=== PATIENT | male | born 1955 | race Caucasian/White ===

== ENCOUNTER 2016-04-12 11:24 | Inpatient (IN) | payer OTHER ==
[2016-04-12 12:10] VITALS: BMI 26.3
--- NOTE | 2016-04-12 14:01 | HP ---
Admission ROS [facility] Chief Complaint: I need to go to rehab for further treatment. I was at [facility] for alcohol detox. Allergies/Adverse Reactions: Allergies Allergy/AdvReac Type Severity Reaction Status Date / Time No Known Allergies Allergy Verified 04/12/16 13:49 History of Present Illness: Pt is a 60yr old male with a history of alcohol dependence seeking rehab for treatment after detox. Exam Limitations: No Limitations - Ebola screening Have you traveled outside of the country in the last 21 days: No Have you had contact with anyone from an Ebola affected area: No Have you been sick,other than usual withdrawal symptoms: No Do you have a fever: No - Review of Systems Constitutional: Diaphoresis EENT: reports: No Symptoms Reported Respiratory: reports: Cough Cardiac: reports: No Symptoms Reported GI: reports: Diarrhea, Poor Appetite, Poor Fluid Intake : reports: No Symptoms Reported Musculoskeletal: reports: Muscle Pain, Other (left knee pain d/t fall a week ago. went to [facility] for x-ray and cleared no fx. also same injury left finger closed fx to left hand) Neuro: reports: Tingling, Tremors Endocrine: reports: Excessive Sweating, Flushing, Intolerance to Cold, Intolerance to Heat Hematology: reports: No Symptoms Reported Psychiatric: reports: Judgement Intact, Mood/Affect Appropiate, Orientated x3, Agitated, Anxious Other Systems: Reviewed and Negative Patient History - Patient Medical History Hx Anemia: No Hx Asthma: No Hx Chronic Obstructive Pulmonary Disease (COPD): No Hx Cancer: No Hx Cardiac Disorders: No Hx Congestive Heart Failure: No Hx Hypertension: Yes (NONCOMPLIANT WITH MED..ON HYDROCHLOROTHIAZIDE.) Hx Hypercholesterolemia: No Hx Pacemaker: No HX Cerebrovascular Accident: No Hx Seizures: No Hx Dementia: No Hx Diabetes: No Hx Gastrointestinal Disorders: No Hx Liver Disease: No Hx Genitourinary Disorders: No Hx Sexually Transmitted Disorders: No Hx Renal Disease (ESRD): No Hx Thyroid Disease: No Hx Human Immunodeficiency Virus (HIV): No (NEGATIVE HX) Hx Hepatitis C: No (NEGATIVE HX) Hx Depression: No Hx Suicide Attempt: No (DENIES) Hx Bipolar Disorder: No Hx Schizophrenia: No - Patient Surgical History Past Surgical History: Yes Hx Neurologic Surgery: No Hx Cataract Extraction: No Hx Cardiac Surgery: No Hx Lung Surgery: No Hx Breast Surgery: No Hx Breast Biopsy: No Hx Abdominal Surgery: No Hx Appendectomy: No Hx Cholecystectomy: No Hx Genitourinary Surgery: No Hx Section: No Hx Orthopedic Surgery: Yes (surgery of left ankle in 2008 WITH PINS) Anesthesia Reaction: No - PPD History Previous Implant?: No Documented Results: Negative w/proof Date: 02/04/16 Results: 0 mm PPD to be Administered?: No - Reproductive History Patient is a Female of Child Bearing Age (11 -55 yrs old): No - Smoking Cessation Smoking history: Current every day smoker Have you smoked in the past 12 months: Yes Aproximately how many cigarettes per day: 20 If you are a former smoker, when did you quit?: 10Y AGO Cigars Per Day: 0 Hx Chewing Tobacco Use: No Initiated information on smoking cessation: Yes 'Breaking Loose' booklet given: 04/12/16 - Substance & Tx. History Hx Alcohol Use: Yes Hx Substance Use: Yes Substance Use Type: Alcohol - Substances Abused Alcohol Route: Oral Frequency: Daily Amount used: a fifth a day of chau Age of first use: 16 Date of Last Use: 04/08/16 Family Disease History - Family Disease History Family Disease History: Heart Disease: Mother (), CA: Father (prostate CA ) Admission Physical Exam S - Vital Signs Vital Signs: Vital Signs - 24 hr 04/12/16 12:08 Temperature 98.2 F Pulse Rate 91 H Respiratory 20 Rate Blood Pressure 158/99 - Physical General Appearance: Yes: Appropriately Dressed, Moderate Distress, Tremorous, Irritable, Sweating, Anxious HEENTM: Yes: Hearing grossly Normal, Muffled/Hoarse Voice Respiratory: Yes: Lungs Clear, Normal Breath Sounds, No Respiratory Distress Neck: Yes: No masses,lesions,Nodules Breast: Yes: Within Normal Limits Cardiology: Yes: Regular Rhythm, Regular Rate, S1, S2 Abdominal: Yes: Normal Bowel Sounds, Non Tender, Soft Genitourinary: Yes: Within Normal Limits Back: Yes: Normal Inspection Musculoskeletal: Yes: Joint Stiffness (left knee), Muscle Pain Extremities: Yes: Normal Capillary Refill, Non-Tender, Tremors Neurological: Yes: Fully Oriented, Alert, Normal Response Integumentary: Yes: Normal Color, Diaphoresis Lymphatic: Yes: Within Normal Limits - Diagnostic (1) HTN (hypertension) Current Visit: Yes Status: Chronic Qualifiers: Hypertension type: essential hypertension Qualified Code(s): I10 - Essential (primary) hypertension (2) Injury of left little finger Current Visit: Yes Status: Acute Qualifiers: Encounter type: initial encounter Qualified Code(s): S69.92XA - Unspecified injury of left wrist, hand and finger(s), initial encounter Comment: went to [facility] had x-ray; closed fx. given motrin for pain (3) Knee pain, acute Current Visit: Yes Status: Acute Qualifiers: Laterality: left Qualified Code(s): M25.562 - Pain in left knee Comment: went to [facility] x-ray done, no fx to knee, only brusing noted (4) Nicotine dependence Current Visit: Yes Status: Chronic Qualifiers: Nicotine product type: cigarettes Substance use status: uncomplicated Qualified Code(s): F17.210 - Nicotine dependence, cigarettes, uncomplicated Cleared for Admission [facility] - Detox or Rehab [facility] Level of Care: Medically Managed Claeared for Rehab Admission: Yes [facility] Breath Alcohol Content Breath Alcohol Content: 0 Urine Drug Screen - Results Drug Screen Negative: No Urine Drug Screen Results: BZO-Benzodiazepines
[2016-04-12] MEDS ORDERED: hydrOXYzine PAMOATE 50 MG CAPSULE (FP) PO PRN (14:13)
[2016-04-12] MEDS ORDERED: ACETAMINOPHEN 325 MG TABLET (FP) PO PRN (14:13)
[2016-04-12] MEDS ORDERED: MAGNESIUM CITRATE 300 ML BOTTLE PO PRN (14:13)
[2016-04-12] MEDS ORDERED: MAG HYDROX/AL HYDROX/SIMETH 30 ML UNIT-DOSE CUP PO PRN (14:13)
[2016-04-12] MEDS ORDERED: P-EPHED 60MG/TRIPROLIDI 2.5MG TABLET PO PRN (14:13)
[2016-04-12] MEDS ORDERED: NICOTINE POLACRILEX 4 MG GUM BC PRN (14:13)
[2016-04-12] MEDS ORDERED: MAGNESIUM HYDROX 2400MG/30ML ORAL SUSPENSION 30 ML CUP PO PRN (14:13)
[2016-04-12] MEDS ORDERED: IBUPROFEN 400 MG TABLET (FP) PO PRN (14:13)
[2016-04-12] MEDS ORDERED: LOPERAMIDE HCL 2 MG CAPSULE PO PRN (14:13)
[2016-04-12] MEDS ORDERED: MENTHOL/PHENOL 1 EACH UD MM PRN (14:13)
[2016-04-12] MEDS: diphenhydrAMINE HCL 50 MG CAPSULE PO PRN (21:18)
[2016-04-12] MEDS: THIAMINE HCL 100 MG TABLET (FP) PO SCH (21:18)
[2016-04-12] MEDS: guaiFENesin/D-METHORPHAN HB 10 ML UNIT-DOSE CUPS PO PRN (21:19)
[2016-04-12 23:30] LABS: URINE APPEARANCE CLEAR; URINE BILIRUBIN NEGATIVE (NEGATIVE); URINE BLOOD NEGATIVE (NEGATIVE); URINE COLOR YELLOW; URINE GLUCOSE (UA) NEGATIVE (NEGATIVE); URINE KETONE NEGATIVE (NEGATIVE); URINE LEUK ESTERASE NEGATIVE (NEGATIVE); URINE NITRITE NEGATIVE (NEGATIVE); URINE PROTEIN NEGATIVE (NEGATIVE); URINE UROBILINOGEN NEGATIVE E.U./dl (0.2-1.0)
[2016-04-13] MEDS: HYDROCHLOROTHIAZIDE 25 MG TABLET (FP) PO SCH ×2 (06:32→10:32)
--- NOTE | 2016-04-13 07:26 | HP ---
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 living with his brother Medical History: Significant for Hypertension, Hypercholesterolemia and a history of orthosurgery for fracture of left ankle in 2008 (pins and screws in place). Smokes cigarettes 1ppd Psychiatric History: Reports that his first psychiatric contact was he was admitted to inpatient detox in 1986 at the [facility]. He saw a psychiatrist there and was and was prescribed Nortriptyline for depression. He said that he stopped taking it on his own after a year. Reports being currently prescribed Trazadone 150 mg po HS for insomnia by his PCP at the [facility].Reports brief exposure to Seroquel while at the [facility]. He could not tell senior writer why it was prescribed for saying " They give it for anything".Denies history of previous psychiatric hospitalization or suicidal attempt Physical/Sexual Abuse/Trauma History: Patient denies history of sexual abuse.No report of symptomalogy suggestive of PTSD (no combat experience). Reports history of a few misdemeanor arrests on charges of drinking and urinating in public. Denies being on probation at present Additional Comment: Mr Campos is a [employer] with 10 years of active service to his credit ([phone]),stationed mostly in [place] with the [employer].Patient reports honorable discharge. Vital Signs: Vital Signs - 24 hr 04/12/16 04/12/16 04/13/16 12:08 22:47 00:47 Temperature 98.2 F Pulse Rate 91 H 102 H Respiratory 20 18 Rate Blood Pressure 158/99 162/109 04/13/16 04/13/16 03:30 07:14 Temperature 97.7 F Pulse Rate 85 Respiratory 18 18 Rate Blood Pressure 160/113 Allergies/Adverse Reactions: Allergies Allergy/AdvReac Type Severity Reaction Status Date / Time No Known Allergies Allergy Verified 04/12/16 16:02 Date of last physical exam: 04/12/16 Concur with the findings of this exam: Yes - Substance Abuse/Tx History Hx Alcohol Use: Yes Hx Substance Use: No Substance Use Type: Alcohol (Started drinking alcohl at age 16, consumes a fifth of chau daily. Last drink on 04/08/16) Hx Substance Use Treatment: Yes (6 previous inpt detox & 2 inpt rehab @ [facility]) - Admission Criteria Poor recovery environment: Yes Comorbidities: Yes Lacks judgement: Yes Mental Status Exam - Mental Status Exam Alert and Oriented to: Time, Place, Person Cognitive Function: Fair Patient Appearance: Well Groomed Mood: Anxious Patient Behavior: Cooperative Speech Pattern: Clear Voice Loudness: Normal Thought Process: Intact Thought Disorder: Not Present Hallucinations: Denies Suicidal Ideation: Denies Homicidal Ideation: Denies Insight/Judgement: Fair Sleep: Poorly Appetite: Good Muscle strength/Tone: Normal Psychiatric Findings - Problem List ([place] 1, 2,3) (1) Alcohol dependence Current Visit: Yes Status: Acute (2) Nicotine dependence Current Visit: Yes Status: Chronic Qualifiers: Nicotine product type: cigarettes Substance use status: uncomplicated Qualified Code(s): F17.210 - Nicotine dependence, cigarettes, uncomplicated (3) Alcohol-induced sleep disorder Current Visit: Yes Status: Acute (4) Injury of left little finger Current Visit: Yes Status: Acute Qualifiers: Encounter type: initial encounter Qualified Code(s): S69.92XA - Unspecified injury of left wrist, hand and finger(s), initial encounter Comment: went to [facility] x-ray; closed fx. given motrin for pain (5) Knee pain, acute Current Visit: Yes Status: Acute Qualifiers: Laterality: left Qualified Code(s): M25.562 - Pain in left knee Comment: went to [facility] x-ray done, no fx to knee, only brusing noted (6) HTN (hypertension) Current Visit: Yes Status: Chronic Qualifiers: Hypertension type: essential hypertension Qualified Code(s): I10 - Essential (primary) hypertension - Initial Treatment Plan Initial Treatment Plan: 1) Continue Trazadone 150 mg po HS for insomnia. 2) Monitor progress
[2016-04-13 10:03] LABS: MCH 30.8 pg (25.7-33.7); MCHC 33.4 g/dl (32.0-35.9); MEAN CELL VOLUME 92.1 fl (80-96); MEAN PLT VOLUME 7.8 fl (7.5-11.1); PLATELET COUNT 253 K/MM3 (134-434); RDW 13.2 % (11.9-15.9); WHITE BLOOD COUNT 6.1 K/mm3 (4.0-10.0)
[2016-04-13] MEDS: PRENATAL VITAMINS W/ FOLIC ACID TABLET (FP) PO SCH (10:31)
[2016-04-13] MEDS: NICOTINE 21 MG/24 HOURS TOPICAL PATCH TD SCH (10:32)
[2016-04-13 11:00] LABS: ALBUMIN 3.8 g/dl (3.4-5.0); ANION GAP 1 (8-16); CALCIUM 8.8 mg/dL (8.5-10.1); CO2 27 mmol/L (21-32); CREATININE 0.6 mg/dL (0.7-1.3); GLUCOSE,RANDOM 93 mg/dL (74-106); SGOT/AST 22 U/L (15-37); SGPT/ALT 28 U/L (12-78)
[2016-04-13 11:02] LABS: ALK PHOS 71 U/L (45-117); BILIRUBIN,TOTAL 0.4 mg/dL (0.2-1.0); TOT PROT 7.9 g/dl (6.4-8.2)
[2016-04-13] MEDS: THIAMINE HCL 100 MG TABLET (FP) PO SCH (21:08)
[2016-04-13] MEDS: traZODone HCL 50 MG TABLET (FP) PO SCH (21:08)
[2016-04-14] MEDS: HYDROCHLOROTHIAZIDE 25 MG TABLET (FP) PO SCH (10:17)
[2016-04-14] MEDS: NICOTINE 21 MG/24 HOURS TOPICAL PATCH TD SCH (10:17)
[2016-04-14] MEDS: PRENATAL VITAMINS W/ FOLIC ACID TABLET (FP) PO SCH (10:17)
[2016-04-14] MEDS: THIAMINE HCL 100 MG TABLET (FP) PO SCH (21:04)
[2016-04-14] MEDS: traZODone HCL 50 MG TABLET (FP) PO SCH (21:04)
[2016-04-15] MEDS: NICOTINE 21 MG/24 HOURS TOPICAL PATCH TD SCH (10:13)
[2016-04-15] MEDS: HYDROCHLOROTHIAZIDE 25 MG TABLET (FP) PO SCH (10:13)
[2016-04-15] MEDS: PRENATAL VITAMINS W/ FOLIC ACID TABLET (FP) PO SCH (10:13)
[2016-04-15] MEDS: guaiFENesin/D-METHORPHAN HB 10 ML UNIT-DOSE CUPS PO PRN (10:14)
[2016-04-15] MEDS ORDERED: LIDOCAINE 5% TOPICAL PATCH TP ONE (12:56)
[2016-04-15] MEDS: traZODone HCL 50 MG TABLET (FP) PO SCH (21:10)
[2016-04-15] MEDS: diphenhydrAMINE HCL 50 MG CAPSULE PO PRN (21:10)
[2016-04-15] MEDS: THIAMINE HCL 100 MG TABLET (FP) PO SCH (21:10)
[2016-04-16] MEDS: HYDROCHLOROTHIAZIDE 25 MG TABLET (FP) PO SCH (10:07)
[2016-04-16] MEDS: LIDOCAINE 5% TOPICAL PATCH TP SCH (10:07)
[2016-04-16] MEDS: PRENATAL VITAMINS W/ FOLIC ACID TABLET (FP) PO SCH (10:07)
[2016-04-16] MEDS: NICOTINE 21 MG/24 HOURS TOPICAL PATCH TD SCH (10:08)
[2016-04-16] MEDS: THIAMINE HCL 100 MG TABLET (FP) PO SCH (21:02)
[2016-04-16] MEDS: traZODone HCL 50 MG TABLET (FP) PO SCH (21:03)
[2016-04-16] MEDS: diphenhydrAMINE HCL 50 MG CAPSULE PO PRN (21:03)
[2016-04-17] MEDS: PRENATAL VITAMINS W/ FOLIC ACID TABLET (FP) PO SCH (10:04)
[2016-04-17] MEDS: LIDOCAINE 5% TOPICAL PATCH TP SCH (10:04)
[2016-04-17] MEDS: HYDROCHLOROTHIAZIDE 25 MG TABLET (FP) PO SCH (10:04)
[2016-04-17] MEDS: NICOTINE 21 MG/24 HOURS TOPICAL PATCH TD SCH (10:06)
[2016-04-17] MEDS: diphenhydrAMINE HCL 50 MG CAPSULE PO PRN (21:14)
[2016-04-17] MEDS: THIAMINE HCL 100 MG TABLET (FP) PO SCH (21:14)
[2016-04-17] MEDS: traZODone HCL 50 MG TABLET (FP) PO SCH (21:14)
[2016-04-18] MEDS: NICOTINE 21 MG/24 HOURS TOPICAL PATCH TD SCH (10:10)
[2016-04-18] MEDS: PRENATAL VITAMINS W/ FOLIC ACID TABLET (FP) PO SCH (10:10)
[2016-04-18] MEDS: HYDROCHLOROTHIAZIDE 25 MG TABLET (FP) PO SCH (10:10)
[2016-04-18] MEDS: LIDOCAINE 5% TOPICAL PATCH TP SCH (10:10)
[2016-04-18] MEDS: diphenhydrAMINE HCL 50 MG CAPSULE PO PRN (21:31)
[2016-04-18] MEDS: traZODone HCL 50 MG TABLET (FP) PO SCH (21:31)
[2016-04-18] MEDS: THIAMINE HCL 100 MG TABLET (FP) PO SCH (21:31)
[2016-04-19] MEDS: HYDROCHLOROTHIAZIDE 25 MG TABLET (FP) PO SCH (10:27)
[2016-04-19] MEDS: LIDOCAINE 5% TOPICAL PATCH TP SCH (10:27)
[2016-04-19] MEDS: PRENATAL VITAMINS W/ FOLIC ACID TABLET (FP) PO SCH (10:27)
[2016-04-19] MEDS: NICOTINE 21 MG/24 HOURS TOPICAL PATCH TD SCH (10:28)
[2016-04-19] MEDS: diphenhydrAMINE HCL 50 MG CAPSULE PO PRN (21:06)
[2016-04-19] MEDS: THIAMINE HCL 100 MG TABLET (FP) PO SCH (21:06)
[2016-04-19] MEDS: traZODone HCL 50 MG TABLET (FP) PO SCH (21:06)
[2016-04-20] MEDS: PRENATAL VITAMINS W/ FOLIC ACID TABLET (FP) PO SCH (10:34)
[2016-04-20] MEDS: LIDOCAINE 5% TOPICAL PATCH TP SCH ×2 (10:34→21:19)
[2016-04-20] MEDS: HYDROCHLOROTHIAZIDE 25 MG TABLET (FP) PO SCH (10:34)
[2016-04-20] MEDS: NICOTINE 21 MG/24 HOURS TOPICAL PATCH TD SCH (10:35)
[2016-04-20] MEDS: traZODone HCL 50 MG TABLET (FP) PO SCH (21:19)
[2016-04-20] MEDS: THIAMINE HCL 100 MG TABLET (FP) PO SCH (21:19)
[2016-04-20] MEDS: diphenhydrAMINE HCL 50 MG CAPSULE PO PRN (21:20)
[2016-04-21] MEDS: PRENATAL VITAMINS W/ FOLIC ACID TABLET (FP) PO SCH (10:08)
[2016-04-21] MEDS: HYDROCHLOROTHIAZIDE 25 MG TABLET (FP) PO SCH (10:09)
[2016-04-21] MEDS: traZODone HCL 50 MG TABLET (FP) PO SCH (21:12)
[2016-04-21] MEDS: THIAMINE HCL 100 MG TABLET (FP) PO SCH (21:12)
[2016-04-21] MEDS: LIDOCAINE 5% TOPICAL PATCH TP SCH (21:13)
[2016-04-21] MEDS: diphenhydrAMINE HCL 50 MG CAPSULE PO PRN (21:13)
[2016-04-22] MEDS: PRENATAL VITAMINS W/ FOLIC ACID TABLET (FP) PO SCH (10:18)
[2016-04-22] MEDS: HYDROCHLOROTHIAZIDE 25 MG TABLET (FP) PO SCH (10:18)
[2016-04-22] MEDS: traZODone HCL 50 MG TABLET (FP) PO SCH (21:07)
[2016-04-22] MEDS: diphenhydrAMINE HCL 50 MG CAPSULE PO PRN (21:09)
[2016-04-22] MEDS: LIDOCAINE 5% TOPICAL PATCH TP SCH (21:10)
[2016-04-22] MEDS: THIAMINE HCL 100 MG TABLET (FP) PO SCH (21:11)
[2016-04-23] MEDS: PRENATAL VITAMINS W/ FOLIC ACID TABLET (FP) PO SCH (10:04)
[2016-04-23] MEDS: HYDROCHLOROTHIAZIDE 25 MG TABLET (FP) PO SCH (10:04)
[2016-04-23] MEDS: traZODone HCL 50 MG TABLET (FP) PO SCH (21:10)
[2016-04-23] MEDS: LIDOCAINE 5% TOPICAL PATCH TP SCH (21:11)
[2016-04-23] MEDS: diphenhydrAMINE HCL 50 MG CAPSULE PO PRN (21:11)
[2016-04-23] MEDS: THIAMINE HCL 100 MG TABLET (FP) PO SCH (21:11)
[2016-04-24] MEDS: HYDROCHLOROTHIAZIDE 25 MG TABLET (FP) PO SCH (10:03)
[2016-04-24] MEDS: PRENATAL VITAMINS W/ FOLIC ACID TABLET (FP) PO SCH (10:03)
[2016-04-24] MEDS: diphenhydrAMINE HCL 50 MG CAPSULE PO PRN (21:01)
[2016-04-24] MEDS: traZODone HCL 50 MG TABLET (FP) PO SCH (21:01)
[2016-04-24] MEDS: THIAMINE HCL 100 MG TABLET (FP) PO SCH (21:01)
[2016-04-24] MEDS: LIDOCAINE 5% TOPICAL PATCH TP SCH (21:46)
[2016-04-25] MEDS: PRENATAL VITAMINS W/ FOLIC ACID TABLET (FP) PO SCH (09:39)
[2016-04-25] MEDS: HYDROCHLOROTHIAZIDE 25 MG TABLET (FP) PO SCH (09:39)
[2016-04-25] MEDS: traZODone HCL 50 MG TABLET (FP) PO SCH (21:05)
[2016-04-25] MEDS: LIDOCAINE 5% TOPICAL PATCH TP SCH (21:05)
[2016-04-25] MEDS: THIAMINE HCL 100 MG TABLET (FP) PO SCH (21:05)
[2016-04-25] MEDS: diphenhydrAMINE HCL 50 MG CAPSULE PO PRN (21:06)
[2016-04-26] MEDS: HYDROCHLOROTHIAZIDE 25 MG TABLET (FP) PO SCH (09:58)
[2016-04-26] MEDS: PRENATAL VITAMINS W/ FOLIC ACID TABLET (FP) PO SCH (09:58)
[2016-04-26] MEDS: THIAMINE HCL 100 MG TABLET (FP) PO SCH (21:08)
[2016-04-26] MEDS: LIDOCAINE 5% TOPICAL PATCH TP SCH (21:08)
[2016-04-26] MEDS: diphenhydrAMINE HCL 50 MG CAPSULE PO PRN (21:08)
[2016-04-26] MEDS: traZODone HCL 50 MG TABLET (FP) PO SCH (21:08)
[2016-04-27 07:01] VITALS: BP 121/71; PULSE 102; TEMP 97.7
--- NOTE | 2016-04-27 08:32 | PN ---
Psychiatric Progress Note Vital Signs: Vital Signs Period Temp Pulse Resp BP Sys/Thomas Pulse Ox Last 24 Hr 97.7 F 102 18-20 121/71 Date of Session: 04/27/16 Chief Complaint:: discharge visit HPI: Patient has addressed alcohol, nicotine dependence comorbid alcohol induced sleep disorder Current Medications: Active Medications Generic Name Dose Route Start Last Admin Trade Name Freq PRN Reason Stop Dose Admin Acetaminophen 650 mg 04/12/16 14:13 Tylenol - PO Q4H PRN PAIN Al Hydroxide/Mg Hydroxide 30 ml 04/12/16 14:13 Mylanta Oral Suspension - PO Q6H PRN DYSPEPSIA Diphenhydramine HCl 50 mg 04/12/16 14:13 04/26/16 21:08 Benadryl - PO 50 mg HSMR1 PRN Administration INSOMNIA Eucalyptus/Menthol/Phenol/Sorbitol 1 each 04/12/16 14:13 Cepastat Lozenge - MM Q4H PRN SORE THROAT Guaifenesin 10 ml 04/12/16 14:13 04/15/16 10:14 Robitussin Dm - PO 10 ml Q6H PRN Administration COUGH Hydrochlorothiazide 25 mg 04/13/16 10:00 04/26/16 09:58 Hctz - PO 25 mg DAILY MIRIAM Administration Hydroxyzine Pamoate 50 mg 04/12/16 14:13 04/13/16 06:30 Vistaril - PO 50 mg Q4H PRN Administration AGITATION Ibuprofen 400 mg 04/12/16 14:13 04/15/16 18:43 Motrin - PO 400 mg Q6H PRN Administration SEVERE PAIN Lidocaine 1 patch 04/20/16 22:00 04/26/16 21:08 Lidoderm Patch - TP 1 patch HS MIRIAM Administration Loperamide HCl 4 mg 04/12/16 14:13 Imodium - PO Q6H PRN DIARRHEA Magnesium Citrate 300 ml 04/12/16 14:13 Citroma - PO Q48H PRN CONSTIPATION Magnesium Hydroxide 30 ml 04/12/16 14:13 Milk Of Magnesia - PO DAILY PRN CONSTIPATION Nicotine Polacrilex 4 mg 04/12/16 14:13 Nicorette Gum - BC Q2H PRN NICOTINE REPLACEMENT RX Multivit/Folic Acid/Iron 1 tab 04/13/16 10:00 04/26/16 09:58 Vitamins (Sjr) - PO 1 tab DAILY MIRIAM Administration Pseudoephedrine/Triprolidine 1 combo 04/12/16 14:13 Actifed - PO TID PRN NASAL CONGESTION Thiamine HCl 100 mg 04/12/16 22:00 04/26/16 21:08 Vitamin B1 - PO 100 mg HS MIRIAM Administration Trazodone HCl 150 mg 04/13/16 22:00 04/26/16 21:08 Desyrel - PO 150 mg HS MIRIAM Administration Current Side Effect: No Lab tests ordered: No Lab tests reviewed: Yes Provider note:: Patient has completed today his treatment and met his goals and will continue to address his issues at [facility] outpatient treatment program, he verbalized his resolution to stay sober and adherent to every aspects of his outpatient program. Patient understands the negative impact of his addiction over his major life areas including mental and physical health. Trazodone has been effective in terms of sleep imrpovement and reduction of anxiety, scripts provided, patient appears to be stable for discharge. Total face to face time:: 35 Mental Status Exam - Mental Status Exam Alert and Oriented to: Time, Place, Person Cognitive Function: Good Patient Appearance: Well Groomed Mood: Hopeful Affect: Appropriate, Mood Congruent, Normal Range Patient Behavior: Appropriate, Cooperative Speech Pattern: Clear, Appropriate Voice Loudness: Normal Thought Process: Goal Oriented Thought Disorder: Not Present Hallucinations: Denies Suicidal Ideation: Denies Homicidal Ideation: Denies Insight/Judgement: Fair Sleep: Fair Appetite: Fair Muscle strength/Tone: Normal Gait/Station: Normal Psychiatric Treatment Plan - Problem List (1) Alcohol dependence Current Visit: Yes (2) Alcohol-induced sleep disorder Current Visit: Yes (3) Injury of left little finger Current Visit: Yes Qualifiers: Encounter type: initial encounter Qualified Code(s): S69.92XA - Unspecified injury of left wrist, hand and finger(s), initial encounter Comment: went to [facility] had x-ray; closed fx. given motrin for pain (4) Knee pain, acute Current Visit: Yes Qualifiers: Laterality: left Qualified Code(s): M25.562 - Pain in left knee Comment: went to [facility] x-ray done, no fx to knee, only brusing noted (5) HTN (hypertension) Current Visit: Yes Qualifiers: Hypertension type: essential hypertension Qualified Code(s): I10 - Essential (primary) hypertension (6) Nicotine dependence Current Visit: Yes Qualifiers: Nicotine product type: cigarettes Substance use status: uncomplicated Qualified Code(s): F17.210 - Nicotine dependence, cigarettes, uncomplicated
[2016-04-27] MEDS: HYDROCHLOROTHIAZIDE 25 MG TABLET (FP) PO SCH (09:58)
[2016-04-27] MEDS: PRENATAL VITAMINS W/ FOLIC ACID TABLET (FP) PO SCH (09:58)
== END 2016-04-27 10:14 | disposition home or self-care (01) | DRG 58 ==
LOC: YASAS 11:24 → Y5N 14:03
PROVIDERS: ADMIT Psychiatry & Neurology Psychiatry; ATTEND Psychiatry & Neurology Psychiatry
PROC: HZ42ZZZ Group Counseling for Substance Abuse Treatment, Cognitive-Behavioral (ICD-10-PCS; principal; 2016-04-12)
DX: F10.282 Alcohol dependence with alcohol-induced sleep disorder (principal); F17.210 Nicotine dependence, cigarettes, uncomplicated; I10 Essential (primary) hypertension; M25.562 Pain in left knee; S69.92XD Unspecified injury of left wrist, hand and finger(s), subsequent encounter; W19.XXXD Unspecified fall, subsequent encounter; Z91.14 Patient's other noncompliance with medication regimen
CPT/HCPCS: 36415; 73560-TC-LT; 80053; 81003; 85027; 86593; 93005; 93010